=== PATIENT | female | born 1960 ===

== ENCOUNTER 2017-04-22 12:06 | Outpatient (CLI) | payer OTHER | END 2017-04-22 15:56 | disposition home or self-care (01) | LOC: SONOGRAMA 12:06 | DX: E05.10 Thyrotoxicosis with toxic single thyroid nodule without thyrotoxic crisis or storm (principal); N20.0 Calculus of kidney ==

== ENCOUNTER 2017-06-17 09:11 | Outpatient (CLI) | payer OTHER | END 2017-06-17 09:16 | disposition home or self-care (01) | LOC: SONOGRAMA 09:11 → MAMO-SONO 09:15 → SONOGRAMA 09:16 | DX: R10.2 Pelvic and perineal pain (principal) ==

== ENCOUNTER 2017-07-12 07:36 | Outpatient (CLI) | payer OTHER | END 2017-07-12 08:19 | disposition home or self-care (01) | LOC: TOM 07:36 | DX: R10.12 Left upper quadrant pain (principal); R10.32 Left lower quadrant pain; K57.92 Diverticulitis of intestine, part unspecified, without perforation or abscess without bleeding ==

== ENCOUNTER 2017-11-02 07:16 | Outpatient (CLI) | payer OTHER | END 2017-11-02 07:20 | disposition home or self-care (01) | LOC: SONOGRAMA 07:16 | DX: R10.816 Epigastric abdominal tenderness (principal) ==

== ENCOUNTER 2018-07-20 14:19 | Outpatient (CLI) | payer OTHER | END 2018-07-20 14:20 | disposition home or self-care (01) | LOC: RAD 14:19 | DX: M17.0 Bilateral primary osteoarthritis of knee (principal); M16.0 Bilateral primary osteoarthritis of hip ==

== ENCOUNTER 2018-08-02 13:10 | Outpatient (CLI) | payer OTHER | END 2018-08-02 13:22 | disposition home or self-care (01) | LOC: MRI 13:10 | DX: S83.203A Other tear of unspecified meniscus, current injury, right knee, initial encounter (principal) | CPT/HCPCS: 73721 ==

== ENCOUNTER 2019-01-24 14:05 | Outpatient (CLI) | payer OTHER | END 2019-01-24 14:08 | disposition home or self-care (01) | LOC: SONOGRAMA 14:05 | DX: R10.2 Pelvic and perineal pain (principal) ==

== ENCOUNTER 2022-07-02 07:24 | Outpatient (CLI) | payer OTHER | END 2022-07-02 07:36 | disposition home or self-care (01) | LOC: TOM 07:24 | PROVIDERS: ATTEND Internal Medicine Gastroenterology | DX: R10.12 Left upper quadrant pain (principal); R10.32 Left lower quadrant pain | CPT/HCPCS: 74177; Q9965 ==